=== PATIENT | male | born 1975 | race Caucasian/White ===

== ENCOUNTER 2024-09-14 12:50 | Outpatient (CLI) | payer BC, SELFPAY ==
--- NOTE | ~2024-09-14 | XR_ITS ---
EXAM: XR shoulder RT min 2V DATE: 09/14/2024 14:10 HISTORY: Shoulder pain. COMPARISON: None available. FINDINGS: Normal mineralization. No fracture or dislocation. No lytic or blastic lesion. Moderate AC joint degenerative change. Calcified granuloma in the right lower lung. No erosion or periosteal brennan nge. Soft tissues within normal limits. IMPRESSION: No acute osseous finding in the right shoulder. Moderate AC joint osteoarthritis. Reviewed, dictated and finalized at location K. IMPRESSION: No acute osseous finding in the right shoulder. Moderate AC joint o steoarthritis.
--- NOTE | ~2024-09-14 | XR_ITS ---
HISTORY: B/L SHOULDER PAIN COMPARISON: None TECHNIQUE: 3 views of the left shoulder were performed FINDINGS: No acute fracture. The glenohumeral and acromioclavicular joint space is maintained The visualized portion of the adjacent left lung is clear. The humeral head is well seated within the glenoid fossa. IMPRESSION: No acute fracture or anterior dislocation. Reviewed, dictated and finalized at location A.
--- NOTE | ~2024-09-14 | XR_ITS ---
EXAM: XR knee RT min 4V DATE: 09/14/2024 14:10 HISTORY: Knee pain. COMPARISON: None available. FINDINGS: Normal mineralization. No fracture or dislocation. No lytic or blastic lesion. Mild medial joint space narrowing. Minimal tricompartmental osteophytosis No erosion or periosteal change. Soft tissues within normal limits. IMPRESSION: Mild right knee osteoarthritis. Reviewed, dictated and finalized at location K.
--- OUTSIDE RECORDS SUMMARY | 2024-09-14 13:00 | XMS_ITS | Clinical Summary ---
Author Organization [facility] Address [address] [place] [address] Care Team Providers Care Seal Delivery Vehicle Officer Name Role Phone Sudheer Tsang MD Primary Care Provider [phone]- [phone] Allergies No known active allergies Medications lisinopril (PRINIVIL) 10 MG tablet Take 1 tablet (10 mg total) by mouth daily. Active atorvastatin (LIPITOR) 20 MG tablet Take 1 tablet (20 mg total) by mouth nightly at bedtime. Active citalopram (CELEXA) 40 MG tablet Take 1 tablet (40 mg total) by mouth daily. Active LORazepam (ATIVAN) 0.5 MG tablet Take 1 tablet (0.5 mg total) by mouth every 6 (six) hours as needed for Anxiety. Active Social History Tobacco Use Types Packs/Day Years Used Date Smoking Tobacco: Every Day Smokeless Tobacco: Never Comments:VAPE Alcohol Use Standard Drinks/Week Comments Yes 0 (1 standard drink = 0.6 oz pur e alcohol) Sex and Gender Information Value Date Recorded Sex Assigned at Not on file Legal Sex Male 1:21 PM SLACK COOPER Gender Identity Not on file Sexual Orientation Not on file Last Filed Vital Signs Vital Sign Reading Time Taken Comments Blood Pressure 170/89 09/26/2023 8:16 PM CDT Pulse 97 09/26/2023 8:16 PM CDT Temperature 36.2 C (97.2 F) 09/26/2023 8:16 PM CDT Respiratory Rate 14 09/26/2023 8:16 PM CDT Oxygen Saturation 98% 09/26/2023 8:16 PM CDT Inhaled Oxygen Concentration - - Weight 96.2 kg (212 lb) 09/26/2023 8:16 PM CDT Height 180.3 cm (5' 11) 09/26/2023 8:16 PM CDT Body Mass Index 29.57 09/26/2023 8:16 PM CDT Plan of Treatment Health Maintenance Due Date Last Done Comments Annual Physical 1976 DTaP, Tdap and Td Vaccines (6 - Tdap) 09/27/1987 09/26/1987, 10/22/1978, 05/18/1975, Additional history exists Hepatitis C 10/25/1991 Hepatitis B Vaccines (1 of 3 - 19+ 3-dose series) 1992 Pneumococcal Vaccine: 50+ Years (1 of 2 - PCV) 1992 Zoster Vaccines (1 of 2) 10/25/2023 COVID-19 Vaccine (3 - 2023-25 season) 2023 06/28/2020, 05/31/2020 Colorectal Cancer Screening Colonoscopy (10 Years) 01/21/2031 01/21/2021, 01/21/2021 Meningococcal B Vaccine Aged Out No l onger eligible based on patient's age to complete this topic Meningococcal Vaccine Aged Out No daxa pat eligible based on patient's age to complete this topic RSV Immunizations Under 20 Months Aged Out No longer eligible based on patient's age to complete this topic Procedures Procedure Name Priority Date/Time Associated Diagnosis Comments COLONOSCOPY 01/21/2021 9:14 AM SLACK COOPER from Last 3 Months or Most Recently Relevant to Health Maintenance Results * COLONOSCOPY (01/21/2021 9:14 AM SLACK COOPER) Mega Tompkins MD GI PROCEDURE ORDERABLES Final Result from Last 3 Months or Most Recently Relevant to Health Maintenance Insurance [facility] Care Teams Seal Delivery Vehicle Officer Relationship Specialty Start Date End Date Sudheer Tsang MD [address] [place] [phone] PCP - General FAMILY PRACTICE 02/01/20
[2024-09-14 13:10] LABS: Hematocrit 39.1 % (40.0-54.0); Hemoglobin 12.8 g/dL (14.0-18.0); Immature Granulocyte Percent A 0.6 % (0.0-0.0); Lymphocytes Absolute Auto 1.18 K/mm3 (1.10-4.50); Mean Corpuscular HGB Conc 32.7 g/dL (32-36); Mean Corpuscular Hemoglobin 28.3 pg (27.0-31.0); Mean Corpuscular Volume 86.5 fL (78.0-102.0); Nucleated Red Blood Cells Absolute Auto 0.00 K/mm3 (0.00-0.00); Nucleated Red Blood Cells Perc 0.0 % (0-0.0); Platelet Count Result 380 K/mm3 (150-420); Red Blood Count 4.52 M/mm3 (4.70-6.10); White Blood Count 6.8 K/mm3 (4.8-10.8)
[2024-09-14 13:13] LABS: Add Urine Microscopic? NO; Appearance Urine Clear (Clear); Glucose Urine UA Negative (Negative); Leukocyte Esterase Ur Negative (Negative); Nitrate Urine Negative (Negative); Specific Grav Ur 1.020 (1.010-1.020)
[2024-09-14 13:47] LABS: Alanine Aminotransferase 26 U/L (6-50); Albumin Level 4.5 g/dL (3.5-5.1); Alkaline Phosphatase 96 U/L (38-126); Anion Gap 7 mmol/L (4-12); Aspartate Amino Transferase 26 U/L (17-59); Bilirubin,Total 0.7 mg/dL (0.2-1.3); Blood Urea Nitrogen 19 mg/dL (9-20); CRP. 3.6 mg/dL (<1.0); Calcium 9.3 mg/dL (8.4-10.2); Carbon Dioxide 30 mmol/L (22-30); Chloride 104 mmol/L (98-107); Cholesterol 185 mg/dL (0-200); Estimated Glomerular Filt Rate > 60; Glucose 100 mg/dL (65-110); HDL Direct 29 mg/dL; Osmolality Calculated 294 mOsm/kg (285-295); Potassium 4.4 mmol/L (3.4-5.0); Sodium 141 mmol/L (137-145); Total Protein 7.3 g/dL (6.3-8.2); Triglycerides 215 mg/dL (<150); Uric Acid 6.1 mg/dL (3.5-8.5)
[2024-09-14 14:15] LABS: Thyroid Stimulating Hormone 2.290 uIU/mL (0.465-4.680)
[2024-09-15 07:03] LABS: LH. 15.7 mIU/mL (1.5-9.3)
== END 2024-09-14 12:51 | disposition home or self-care (01) ==
LOC: CHSLAB 12:57
PROVIDERS: PCP Internal Medicine; Visit Provider Internal Medicine
DX: M13.0 Polyarthritis, unspecified (principal); E29.1 Testicular hypofunction; E78.5 Hyperlipidemia, unspecified
CPT/HCPCS: 36415; 73030; 73564; 80053; 80061; 81003; 83002; 84402; 84403; 84443; 84550; 85025; 86038; 86039; 86140; 86200

== ENCOUNTER 2024-09-18 16:04 | Outpatient (CLI) | payer BC, SELFPAY ==
--- NOTE | 2024-09-18 | CONSULT_PTH ---
PATIENT: Zion Major LOC: [facility]#:[id number] AGE/SX: 48/M ROOM: RE09/18/[address]: Woo Santos MD : 1975 BED: DIS: 09/18/2024 SPEC #: [id number] RECD: 09/18/24 17:40 STATUS: DENNYS REQ #: [id number] DAVON: 09/18/24 00:[address]: Woo Santos DEPT: [facility] Consult RECD BY: Melba Caputo MLT, [facility] Tissues: A - Peripheral Smear Procedures: Hematology Consult
--- OUTSIDE RECORDS SUMMARY | 2024-09-18 16:08 | XMS_ITS | Clinical Summary ---
Author Organization [facility] Address [address] [place] [address] Care Team Providers Care Breast Puller Name Role Phone Sudheer Tsang MD Primary Care Provider [phone]- [phone] Allergies No known active allergies Medications lisinopril [...] on file Legal Sex Male 1:21 PM FINISHED YARN EXAMINER Gender Identity Not on file Sexual Orientation [...] Associated Diagnosis Comments COLONOSCOPY 01/21/2021 9:14 AM FINISHED YARN EXAMINER from Last 3 Months or Most Recently Relevant to Health Maintenance Results * COLONOSCOPY (01/21/2021 9:14 AM FINISHED YARN EXAMINER) Mega Tompkins MD GI PROCEDURE ORDERABLES Final Result from Last 3 Months or Most Recently Relevant to Health Maintenance Insurance [facility] Care Teams Breast Puller Relationship Specialty Start Date End Date Sudheer Tsang MD [address] [place] [phone] PCP - General FAMILY PRACTICE 02/01/20
[2024-09-18 16:22] LABS: Immature Reticulocyte Fraction 14.5 % (2.0-16.52); Reticulocyte Hemoglobin Conten 31.7 pg (28.0-35.0); Reticulocytes Absolute 0.08 M/mm3 (0.02-0.10)
[2024-09-18 16:55] LABS: Iron 70 ug/dL (49-181)
[2024-09-18 17:05] LABS: Percent Iron Saturation 22 % (20-50)
[2024-09-18 17:30] LABS: Ferritin 186.00 ng/mL (11.1-264)
[2024-09-20 12:43] LABS: Red Blood Cell Folate 459 ng/mL RBC (>280)
[2024-09-20 16:53] LABS: Methylmalonic Acid. 191 nmol/L (55-335)
== END 2024-09-18 16:05 | disposition home or self-care (01) ==
PROVIDERS: PCP Internal Medicine; Visit Provider Internal Medicine
DX: D64.9 Anemia, unspecified (principal)
CPT/HCPCS: 36415; 82728; 82747; 83540; 83550; 83615; 83921; 85046

== ENCOUNTER 2024-09-22 13:37 | Outpatient (CLI) | payer BC, SELFPAY ==
--- OUTSIDE RECORDS SUMMARY | 2024-09-22 13:40 | XMS_ITS | Clinical Summary ---
Author Organization [facility] Address [address] [place] [address] Care Team Providers Care Ux Interaction Designer Name Role Phone Sudheer Tsang MD Primary Care Provider [phone]- [phone] Allergies No known active allergies Medications lisinopril [...] on file Legal Sex Male 1:21 PM CARGO MATE Gender Identity Not on file Sexual Orientation [...] Associated Diagnosis Comments COLONOSCOPY 01/21/2021 9:14 AM CARGO MATE from Last 3 Months or Most Recently Relevant to Health Maintenance Results * COLONOSCOPY (01/21/2021 9:14 AM CARGO MATE) Mega Tompkins MD GI PROCEDURE ORDERABLES Final Result from Last 3 Months or Most Recently Relevant to Health Maintenance Insurance [facility] Care Teams Ux Interaction Designer Relationship Specialty Start Date End Date Sudheer Tsang MD [address] [place] [address] [phone] PCP - General FAMILY PRACTICE 02/01/20
[2024-09-22 14:07] LABS: Hematocrit 40.0 % (40.0-54.0); Hemoglobin 13.3 g/dL (14.0-18.0); Mean Corpuscular HGB Conc 33.3 g/dL (32-36); Mean Corpuscular Hemoglobin 28.5 pg (27.0-31.0); Mean Corpuscular Volume 85.8 fL (78.0-102.0); Platelet Count Result 431 K/mm3 (150-420); Red Blood Count 4.66 M/mm3 (4.70-6.10); White Blood Count 8.7 K/mm3 (4.8-10.8)
[2024-09-22 14:22] LABS: CRP 0.7 mg/dL (<1.0)
== END 2024-09-22 13:38 | disposition home or self-care (01) ==
LOC: CHSLAB 13:39
PROVIDERS: PCP Internal Medicine; Visit Provider Internal Medicine
DX: M13.0 Polyarthritis, unspecified (principal); D64.9 Anemia, unspecified
CPT/HCPCS: 36415; 82728; 82747; 83540; 83550; 83615; 85027; 85046; 86140; 86618

== ENCOUNTER 2024-11-17 07:44 | Outpatient (CLI) | payer BC, SELFPAY ==
--- NOTE | ~2024-11-17 | CT_ITS ---
EXAMINATION:CT diagnostic chest w con DATE: 11/17/2024 08:31 INDICATION: Right lower lung pulmonary nodule. TECHNIQUE: Computed tomography (CT) of the chest was performed with 100 mL Omnipaque 350 intravenous contrast. Automated exposure control and iterative reconstruction technique were employed. The dose-length product (DLP) was 292.05 mGy-cm. COMPARISON: None. FINDINGS: There is mild emphysema. There is mild atelectasis bilaterally. Calcified right lung nodules and calcified subcarinal lymph nodes are consistent with old granulomatous disease. No pleural effusion. The heart size is normal. There is a trace pericardial effusion. Calcifications in the spleen are consistent with old granulomatous disease. There is mild thoracic spondylosis. There is mild chronic anterior wedging of multiple vertebral bodies. IMPRESSION: 1. Calcified right lung nodules, consistent with old granulomatous disease. 2. Mild emphysema. Reviewed, dictated and finalized at location E.
--- OUTSIDE RECORDS SUMMARY | 2024-11-17 07:47 | XMS_ITS | Clinical Summary ---
Author Organization [facility] Address [address] [place] [address] Care Team Providers Care Building Inspector Name Role Phone Sudheer Tsang MD Primary Care Provider [phone]- [phone] Allergies No known active allergies Medications lisinopril [...] on file Legal Sex Male 1:21 PM CASTING INSPECTOR Gender Identity Not on file Sexual Orientation [...] Associated Diagnosis Comments COLONOSCOPY 01/21/2021 9:14 AM CASTING INSPECTOR from Last 3 Months or Most Recently Relevant to Health Maintenance Results * COLONOSCOPY (01/21/2021 9:14 AM CASTING INSPECTOR) Mega Tompkins MD GI PROCEDURE ORDERABLES Final Result from Last 3 Months or Most Recently Relevant to Health Maintenance Insurance [facility] Care Teams Building Inspector Relationship Specialty Start Date End Date Sudheer Tsang MD [address] [place] [phone] PCP - General FAMILY PRACTICE 02/01/20
[2024-11-17 08:10] LABS: Estimated Glomerular Filt Rate > 60
== END 2024-11-17 07:45 | disposition home or self-care (01) ==
LOC: CHSIMG 07:45
PROVIDERS: PCP Internal Medicine; Visit Provider Internal Medicine
DX: R91.1 Solitary pulmonary nodule (principal); J98.4 Other disorders of lung; J43.9 Emphysema, unspecified
CPT/HCPCS: 71260; Q9967